=== PATIENT | female | born 1940 | race Hispanic/Latino ===

== ENCOUNTER 2021-06-14 07:16 | Day surgery (SDC) | payer MEDICARE ==
[2021-06-11 15:16] LABS: BASOPHILS % (AUTO) 0.7 % (0.0-5.0); EOSINOPHILS % (AUTO) 1.7 % (0.0-8.0); HEMATOCRIT 42.6 % (36-48); LYMPHOCYTES % (AUTO) 29.2 % (21.0-51.0); MEAN CORPUSCULAR HEMOGLOBIN 27.3 pg (27.0-33.0); MONOCYTES % (AUTO) 7.3 % (3.0-13.0); NEUTROPHILS % (AUTO) 60.9 % (40.0-77.0); PLATELET COUNT (AUTO) 258 K/uL (130-400); RED BLOOD CELL COUNT(AUTO) 4.84 MIL/uL (4.00-5.50); WHITE BLOOD COUNT (AUTO) 8.3 K/uL (4.8-10.8)
[2021-06-11 15:23] LABS: APPEARANCE,URINE Clear (CLEAR); BILIRUBIN,URINE Negative (NEGATIVE); COLOR,URINE Yellow (YELLOW); GLUCOSE, URINE (UA) Negative (NEGATIVE); KETONES,URINE Negative (NEGATIVE); LEUKOCYTE ESTERASE ,URINE Small (NEGATIVE); NITRATE,URINE Negative (NEGATIVE); OCCULT BLOOD,URINE Negative (NEGATIVE); PH,URINE 6.5 (5.0-8.0); PROTEIN,URINE Negative (NEGATIVE)
[2021-06-11 15:28] LABS: CREATININE 0.9 mg/dL (0.5-1.5); POTASSIUM 4.3 mmol/L (3.5-5.1)
[2021-06-11 15:29] VITALS: BP 159/89
[2021-06-11 15:29] LABS: INR 1.13 (0.85-1.15); PROTHROMBIN TIME 12.2 SEC (9.6-11.6)
[2021-06-11 15:31] LABS: PARTIAL THROMBOPLASTIN TIME 32.4 SEC (26.3-35.5)
[2021-06-11 15:32] LABS: RBC,URINE None Seen /HPF (0-1); WBC,URINE 0-1 /HPF (0-1)
[2021-06-11 15:33] LABS: BACTERIA,URINE None Seen /HPF (None Seen); SQUAMOUS EPITHELIAL CELL,UR None Seen /HPF (0-2)
[~2021-06-14] VITALS: Ht 165.1 cm; Wt 81.9 kg
[2021-06-14] VITALS (31 sets, daily range): BP systolic 127–179; BP diastolic 54–97
[~2021-06-14 07:16] MED LIST: AEC81 PO; ALPR0.5T8 PO; APIX5TAB PO; ATOR40TA71 PO; DILT-118 PO; METO200T49 PO
[2021-06-14] MEDS ORDERED: LIDOCAINE HCL 2% VISCOUS 15 ML UDCUP ONE (07:54)
[2021-06-14] MEDS ORDERED: 0.9%NACL 1000ML 1,000 ML IV SCH ×2 (08:00→15:30)
[2021-06-14] MEDS ORDERED: FENTANYL CITRATE PF 50 MCG/1 ML 2ML VIAL ONE (09:22)
[2021-06-14] MEDS ORDERED: MIDAZOLAM HCL 1 MG/ML 2ML VIAL ONE ×3 (09:22→14:27)
[2021-06-14] MEDS ORDERED: PROPOFOL 10 MG/ML 20ML VIAL IV ONE (09:24)
[2021-06-14] MEDS ORDERED: ATROPINE 1MG SYG IVP ONE (09:49)
[2021-06-14] MEDS ORDERED: SODIUM BICARB 50MEQ 50ML VIAL 50 ML ONE (13:33)
[2021-06-14] MEDS ORDERED: NITROGLYCERIN 50MG VIAL ONE (13:33)
[2021-06-14] MEDS ORDERED: HEPARIN 10,000 UNIT/10ML (1,000 UNIT/ML) VIAL ONE (13:33)
[2021-06-14] MEDS ORDERED: LIDOCAINE HCL 400MG/20ML VIAL ONE (13:34)
[2021-06-14] MEDS ORDERED: MEPERIDINE-PF 25 MG/ML SYG ONE ×2 (13:34→14:27)
[2021-06-14] MEDS ORDERED: IOHEXOL-350 75 ML VIAL IV ONE (13:34)
[2021-06-14] MEDS ORDERED: IOHEXOL-350 50ML VIAL IV ONE (13:52)
[2021-06-14] MEDS ORDERED: CLOPIDOGREL 300MG TAB ONE (14:54)
[2021-06-14] MEDS ORDERED: ASPIRIN 325MG EC TAB PO ONE (14:54)
[2021-06-14] MEDS ORDERED: AMLODIPINE 5 MG TAB ONE (18:42)
== END 2021-06-14 19:10 | disposition home or self-care (01) ==
LOC: DAH 07:16
PROVIDERS: ATTEND Internal Medicine Cardiovascular Disease
DX: I25.110 Atherosclerotic heart disease of native coronary artery with unstable angina pectoris (principal); I08.1 Rheumatic disorders of both mitral and tricuspid valves; I25.82 Chronic total occlusion of coronary artery; T82.858A Stenosis of other vascular prosthetic devices, implants and grafts, initial encounter; I49.1 Atrial premature depolarization; I11.0 Hypertensive heart disease with heart failure; I50.32 Chronic diastolic (congestive) heart failure; E78.5 Hyperlipidemia, unspecified; I48.19 Other persistent atrial fibrillation; F41.9 Anxiety disorder, unspecified; Z98.890 Other specified postprocedural states; Z79.82 Long term (current) use of aspirin; Z82.49 Family history of ischemic heart disease and other diseases of the circulatory system; Z79.01 Long term (current) use of anticoagulants; Z79.899 Other long term (current) drug therapy; Z95.5 Presence of coronary angioplasty implant and graft
CPT/HCPCS: 36415; 71045; 80048; 81001; 85025; 85610; 85730; 92960 ×2; 93005 ×2; 93312; 93325; 93459; A4215; A4216; A4221; A4222; A4223 ×3; A4606; A4663; C1725; C1760; C1769; C1874; C1887; C1894 ×2; C9600; J0461; J1644 ×2; J2175 ×2; J2250 ×3; J2704; J3010; J3490 ×3; J7030; Q9965; Q9967 ×2; 99156; 99157